=== PATIENT | male | born 1960 | race Caucasian/White ===

== ENCOUNTER 2018-11-14 11:56 | Inpatient (IN) | payer SELFPAY ==
[2018-11-14] MEDS ORDERED: Norepinephrine 8 MG/250 ML BAG IVPB PRN (12:12)
[2018-11-14] MEDS ORDERED: EPINEPHrine 1 MG, Admixture Fee 1 EACH in Dextrose 5% in Water 250 ML IVPB SCH (12:45)
[2018-11-14 12:50] LABS: Hemoglobin 14.6 g/dL (14.0-18.0); Mean Corpuscular HGB CONC 31.7 g/dL (32.0-36.0); Mean Corpuscular Hemoglobin 30.7 pg (27.0-31.0); Mean Corpuscular Volume 96.6 fL (78.0-98.0); Mean Platelet Volume 9.7 fL (7.4-10.4); Platelet Count 233 thou/uL (130-400); RBC Distribution Width 12.2 % (11.5-14.5); Red Blood Cell (RBC) Count 4.75 mill/uL (4.70-6.10); White Blood Cell (WBC) Count 45.9 thou/uL (4.8-10.8)
[2018-11-14] MEDS ORDERED: Piperacillin/Tazobactam 4.5 GM VIAL ONE (12:56)
[2018-11-14] MEDS ORDERED: Norepinephrine 8 MG in Dextrose 5% in Water 250 ML IVPB PRN (13:00)
[2018-11-14 13:01] LABS: ALT (SGPT) 512 U/L (8-55); AST (SGOT) 983 U/L (5-34); Albumin 1.7 g/dL (3.5-5.0); Alkaline Phosphatase 229 U/L (40-150); Anion Gap 34 mmol/L (10-20); BUN (Urea Nitrogen) 87 mg/dL (8.4-25.7); Bilirubin, Total 1.3 mg/dL (0.2-1.2); CK (CPK) 3119 U/L (30-200); Calc. Creatinine Clearance 0 mL/min (70-130); Carbon Dioxide 10 mmol/L (22-29); Chloride 104 mmol/L (98-107); Estimated GFR-MDRD 17; Globulin 1.6 g/dL (2.4-3.5); Potassium 5.1 mmol/L (3.5-5.1); Protein, Total 3.3 g/dL (6.0-8.3); Sodium 143 mmol/L (136-145)
[2018-11-14 13:08] LABS: Actual Bicarbonate (HCO3a) 11.2 mEq/L (22-28); Analyzer IN Cardio ER; Base Excess (BEa) -24.9 mEq/L (-2.0 to +3.0); Calcium, Ionized 1.02 mmol/L (1.12-1.30); Carboxyhemoglobin (COHb) 1.1 gm% (0.0-3.0); Hemoglobin (Hb) 13.9 g/dL (14.0-18.0); O2 Tension (PaO2) 92.7 mmHg (80.0-100.0)
[2018-11-14 13:08] LABS: Glucose 13 mg/dL (70-105)
[2018-11-14] MEDS ORDERED: Sodium Bicarb 50 MEQ/50 ML Abboject 8.4% SYRINGE ONE ×2 (13:12→15:00)
[2018-11-14] MEDS ORDERED: Fentanyl 100 MCG/2 ML VIAL ONE (13:13)
[2018-11-14] MEDS ORDERED: Sodium Bicarb 50 MEQ/50 ML VIAL ONE ×8 (13:14→22:10)
[2018-11-14] MEDS ORDERED: Rocuronium Bromide 10 MG/ML (10ML VIAL) ONE ×2 (13:15→14:56)
[2018-11-14] MEDS ORDERED: Hydrocortisone Sod Succ/PF 100 mg/2 ml Vial ONE (13:17)
[2018-11-14 13:29] LABS: CKMB 62.5 ng/mL (0-6.6)
[2018-11-14 13:41] LABS: Band 44 % (5-11); Eosinophils 1 % (0-10); Hypochromia SLIGHT = 6-15 cells (100X) (0-5/hpf); Lymphocytes 15 % (21-51); MDiff Complete? YES; Metamyelocyte 8 % (0-0); Monocytes 3 % (0-10); Myelocyte 22 % (0-0); Neutrophil 3 % (42-75); Nucleated RBC 2 % (0); Ovalocytes SLIGHT = 2-5 cells (100X) (0-1/hpf); Platelet Morphology Comment Appears Adequate; Polychromasia MODERATE = 3-4 cells (100X) (0-2/hpf); Reactive Lymphocytes 4 % (0-10); Reflex for Review?? YES; Tear Drops SLIGHT = 2-5 cells (100X) (0-1/hpf)
[2018-11-14 13:50] LABS: INR-International Normal Ratio 2.2; PTT 48.8 SEC (22.9-36.1); Prothrombin Time 24.8 SEC (12.0-14.7)
[2018-11-14 14:02] LABS: pH, Arterial 6.77 (7.35-7.45)
[2018-11-14] MEDS ORDERED: Albumin 5% 500 ML ONE ×3 (14:10→22:34)
--- NOTE | 2018-11-14 14:17 | RAD ---
PORTABLE CHEST ONE VIEW: 11/14/18 at 12:10 p.m. HISTORY: Respiratory failure. FINDINGS/IMPRESSION: There is an endotracheal tube with tip at the level of the clavicular heads. The nasogastric tube can be placed into the stomach with tip excluded from the film. The heart size is borderline. There are bilateral perihilar alveolar opacities, right greater than left. No pneumothoraces or large effusion s are seen. POS: [facility]
[2018-11-14] MEDS ORDERED: Albuterol Sulfate HFA (OR ONLY) ONE (14:21)
[2018-11-14] MEDS ORDERED: Neomycin-Polymyxin 1 ML AMP ONE (14:30)
[2018-11-14] MEDS ORDERED: EPINEPHrine 1 MG/10 ML Abboject SYRINGE ONE (14:56)
[2018-11-14] MEDS ORDERED: Calcium Chloride 1 GM/10 ML Abboject SYRINGE ONE ×4 (14:56→22:33)
[2018-11-14] MEDS ORDERED: Dextrose 50% Abboject 50 ML SYRINGE ONE ×2 (15:00→22:12)
--- NOTE | 2018-11-14 15:12 | CT ---
CT ABDOMEN AND PELVIS WITHOUT CONTRAST: 11/14/18 HISTORY: Cardiac and respiratory failure, left lower quadrant abdominal pain. FINDINGS: There is consolidative changes at the lung bases. There is extensive free air in the abdomen. No calcified gallstones are seen. No calculi is seen in the kidneys, ureters or the urinary bladder. No hydroureteronephrosis seen on either side. The Oh catheter is present with air in a nondistend ed urinary bladder. Appendix is normal. There are vascular calcifications without evidence of aneurys mal dilatation of the abdominal aorta. There are degenerative changes in the spine. No calculi seen i n the right kidney, ureters or the urinary bladder. A tiny nonobstructing left renal calculus is pre sent. There is a fat containing left inguinal hernia which also contains free air. Large amount of free air in the abdomen is seen in the left lower quadrant which could be due to perforated diverticulum. Oth er sites of bowel perforation; however, cannot be excluded. IMPRESSION: Large amount of free air in the abdomen consistent with bowel perforation. Discussed over the telephone with ER physician, Dr. Thom Gonzalez at 12:45 p.m. POS: [facility]
[2018-11-14] MEDS ORDERED: Dextrose 5% in Water 1,000 ML IV PRN (15:17)
[2018-11-14] MEDS ORDERED: HumaLOG 300 UNITS/3 ML VIAL SC PRN (15:17)
[2018-11-14] MEDS ORDERED: Dextrose 50% Abboject 50 ML SYRINGE SLOW IVP PRN (15:17)
[2018-11-14] MEDS ORDERED: Ondansetron PF 4 MG/2 ML Vial IVP PRN (15:17)
[2018-11-14] MEDS ORDERED: fentaNYL Citrate/PF 2,000 MCG in Sodium Chloride 0.9% 60 ML IV SCH (15:24)
[2018-11-14] MEDS ORDERED: Fentanyl BOLUS 250 ML IVPB PRN (15:24)
[2018-11-14] MEDS ORDERED: Lorazepam 2 MG/ML VIAL SLOW IVP PRN (15:24)
[2018-11-14] MEDS ORDERED: Propofol BOLUS 1,000 MG/100 ML VIAL IV PRN (15:24)
[2018-11-14] MEDS ORDERED: Morphine 2 MG/ML SYRINGE SLOW IVP PRN (15:24)
[2018-11-14] MEDS ORDERED: Propofol 1,000 MG/100 ML VIAL IV PRN (15:24)
[2018-11-14] MEDS ORDERED: DISCONTINUE PREVIOUS NARCOTIC PAIN MEDICATIONS AND BENZODIAZEPINES FS SCH (15:24)
[2018-11-14] MEDS ORDERED: Sodium Bicarbonate 150 MEQ in Dextrose 5% in Water 1,000 ML IV SCH (15:30)
[2018-11-14] MEDS ORDERED: Ventilator Sedation Protocol 1 EACH FS SCH (15:30)
[2018-11-14 15:49] LABS: Actual Bicarbonate (HCO3a) 17.6 mEq/L (22-28); Base Excess (BEa) -13.5 mEq/L (-2.0 to +3.0); Calcium, Ionized 1.11 mmol/L (1.12-1.30); Carboxyhemoglobin (COHb) 2.4 gm% (0.0-3.0); Hemoglobin (Hb) 12.7 g/dL (14.0-18.0); O2 Tension (PaO2) 69.1 mmHg (80.0-100.0); Potassium - ABG Lab 3.42 mmol/L (3.70-5.30)
[2018-11-14] MEDS ORDERED: Sodium Bicarb 50 MEQ/50 ML Abboject 8.4% SYRINGE IVP SCH ×2 (16:00)
[2018-11-14 16:07] LABS: CO2 Tension 66.3 mmHg (35.0-45.0); pH, Arterial 7.04 (7.35-7.45)
[2018-11-14 16:08] LABS: Puncture Site ALINE
[2018-11-14 16:09] LABS: ALV-art Gradient 561.025 (0-20)
[2018-11-14 16:11] VITALS: BMI 33.8
[2018-11-14] MEDS ORDERED: Amiodarone 450 MG, Admixture Fee 1 EACH in Dextrose 5% in Water 250 ML IVPB SCH (16:15)
[2018-11-14] MEDS ORDERED: Amiodarone 150 MG, Admixture Fee 1 EACH in Dextrose 5% in Water 100 ML IVPB SCH (16:15)
[2018-11-14 16:20] LABS: Anion Gap 30 mmol/L (10-20); BUN (Urea Nitrogen) 87 mg/dL (8.4-25.7); Calc. Creatinine Clearance 40 mL/min (70-130); Calcium 8.1 mg/dL (7.8-10.44); Carbon Dioxide 18 mmol/L (22-29); Chloride 103 mmol/L (98-107); Estimated GFR-MDRD 19; Glucose 128 mg/dL (70-105); Magnesium 3.1 mg/dL (1.6-2.6); Phosphorus 13.4 mg/dL (2.3-4.7); Potassium 3.5 mmol/L (3.5-5.1); Sodium 147 mmol/L (136-145)
[2018-11-14 17:22] LABS: Lactic Acid 13.2 mmol/L (0.5-2.2)
[2018-11-14] MEDS ORDERED: Norepinephrine 16 MG in Dextrose 5% in Water 234 ML IVPB PRN (17:43)
[2018-11-14] MEDS ORDERED: Sodium Bicarb 50 MEQ/50 ML VIAL IVP SCH (17:45)
[2018-11-14 18:35] LABS: Actual Bicarbonate (HCO3a) 23.8 mEq/L (22-28); Base Excess (BEa) -4.6 mEq/L (-2.0 to +3.0); Calcium, Ionized 0.96 mmol/L (1.12-1.30); Carboxyhemoglobin (COHb) 2.6 gm% (0.0-3.0); Hemoglobin (Hb) 11.3 g/dL (14.0-18.0); Potassium - ABG Lab 3.16 mmol/L (3.70-5.30)
--- NOTE | 2018-11-14 18:38 | HP ---
DATE OF CONSULTATION: 11/14/2018 HISTORY OF PRESENT ILLNESS: A 58-year-old man apparently with 1-week history of abdominal pain. Family finally called 911. The patient is seen by [facility]. He developed asystole, cardiac arrest requiring 10-minute CPR. Following return of spontaneous circulation or intubation, the patient was transferred to [facility] in [place], [place], on arriving in extremis. He is now on large volume resuscitation as well as vasopressor and inotropic support. CT scan of the abdomen and pelvis was obtained, which was significant for large amount of pneumoperitoneum. I was asked to evaluate the patient for surgical intervention. At the time of my evaluation, the patient is intubated on mechanical ventilator support, an extremis. PAST MEDICAL HISTORY: Unknown. PAST SURGICAL HISTORY: Unknown. SOCIAL HISTORY: Unknown. FAMILY HISTORY: Unknown. CURRENT MEDICATIONS: Unknown. ALLERGIES: UNKNOWN. REVIEW OF SYSTEMS: Could not be obtained. The patient is in extremis on full mechanical ventilator support. PHYSICAL EXAMINATION: GENERAL: Reveals a 58-year-old man, who is in extremis. He otherwise appears stated age. VITAL SIGNS: Include blood pressure, which was in the upper 70s to low 80s on a high dose of norepinephrine and epinephrine. The patient had already received over 6 L of crystalloids. HEENT: Reveals normocephalic and atraumatic. Both pupils are equal at 4 mm and reactive to light. NECK: He has no jugular venous distention noted. HEART: Reveals regular rate with sinus tachycardia. No murmurs or gallops auscultated. LUNGS: Clear to auscultation bilaterally. Breathing, regular and unlabored. ABDOMEN: Soft and markedly distended. The liver and spleen nonpalpable below costal margin. EXTREMITIES: Reveals thready bilateral radial and pedal pulses present. Both feet are cool to touch nevertheless. Capillary refill; however, is presently less than 2 seconds. NEUROLOGIC: Could not be ascertained as the patient is sedated on mechanical ventilator support. LABORATORY FINDINGS: Today includes a CBC with a 45,900 white blood cells, hemoglobin and hematocrit 14.6 and 45.9 respectively. The platelet count is 233,000. Differential counts as follows; 3% segmented neutrophils, 44 bands, 15 lymphocytes, 3 monocytes, and 1 eosinophil. Metabolic profile; sodium is 143, potassium is 5.1, chloride is 104, bicarb is 10, creatinine is 3.68, BUN is 87, glucose is 13, lactic acid is 15.5, total bilirubin is 1.3, and AST and ALT are 983 and 512 respectively. Alkaline phosphatase is 229. Creatine kinase is elevated at 3119. Serum cortisol level is noted at 32. Arterial blood gas; pH is 6.77, pCO2 is 78, pO2 is 92.7, oxygen saturation is 86.5%, and base excess is -24.9. Ionized calcium is noted at 1.02. I have personally reviewed the CT scan of the abdomen and pelvis, which is remarkable for thickened left colonic wall with extensive pneumoperitoneum. IMPRESSION: 1. Acute perforated viscus, likely secondary to perforated colon, likely ischemic in nature. 2. Acute septic shock secondary to likely gram-negative endotoxemia. 3. Severe acute lactic acidosis secondary to #1 and 2. 4. Acute hypercapnic and hypoxemic respiratory failure. 5. Acute severe lactic acidosis. 6. Acute ischemic hepatitis. 7. Acute kidney injury secondary to #1 and 2. 8. Acute rhabdomyolysis. 9. Acute hypocalcemia. PLAN: 1. Emergent exploratory laparotomy with indicated procedures. 2. Aggressive fluid resuscitation. Goal will be to continue vasopressor and inotropic support and deescalate as indicated. Total Critical Care time : 65 minutes Job ID: [id number] MTDD
[2018-11-14 18:39] LABS: CO2 Tension 60.4 mmHg (35.0-45.0); pH, Arterial 7.21 (7.35-7.45)
[2018-11-14 18:40] LABS: O2 Tension (PaO2) 54.4 mmHg (80.0-100.0); Puncture Site LINE
--- NOTE | 2018-11-14 18:53 | OP ---
DATE OF PROCEDURE: 11/14/2018 PREOPERATIVE DIAGNOSES: 1. Acute perforated viscus. 2. Acute septic shock secondary to likely gram-negative endotoxemia. 3. Multiple organ failure syndrome secondary to #1 and #2. POSTOPERATIVE DIAGNOSES: 1. Ischemic left colonic bowel necrosis. 2. Severe peritonitis. 3. Necrotizing soft tissue infection involving the pelvis and low anterior abdominal wall. 4. Multiple organ failure syndrome. 5. Severe lactic acidosis. PROCEDURES PERFORMED: 1. Exploratory laparotomy. 2. Left hemicolectomy. 3. Excisional debridement of multiple necrotic soft tissue involving the peritoneum and abdominal wall. 4. Abdominal washout. 5. Temporary abdominal closure using ABThera wound VAC. ANESTHESIA: General endotracheal. ESTIMATED BLOOD LOSS: Less than 50 mL. COUNTS: Sponge and instrument counts were verified as correct x2. COMPLICATIONS: None apparent at the time of operation. INDICATIONS FOR OPERATION: A 58-year-old man supposedly with over 1-week history of abdominal pain. The patient was brought to the Emergency Department following acute cardiac arrest. CPR was initiated and continued for 10 minutes according to [facility]. The patient was subsequently intubated and placed on mechanical ventilator support after return of spontaneous circulation. Workup in the Emergency Department including a CT scan of the abdomen and pelvis were remarkable for extensive pneumoperitoneum. The patient has received large volume fluid resuscitation, yet remaining hypotensive on vasopressors and inotropic support. The patient was taken to the operating room emergently for exploration. Findings are consistent with extensive necrosis of the left colon, down to and including the rectum. There is extensive amount of soft tissue necrosis involving the peritoneum, left retroperitoneum and anterior abdominal wall. DESCRIPTION OF PROCEDURE: The patient was taken to the operating room urgently, placed in supine position. Following general anesthesia, abdomen was sterilely prepped and draped in usual fashion. A midline incision was made using #10 scalpel. Incision was carried through subcutaneous tissues maintaining hemostasis using cautery. The fascia incised in midline using cautery exposing the peritoneum, which was grasped x2 with hemostats. The peritoneal cavity was sharply entered. Incision was then extended superiorly and inferiorly. Bookwalter retractor was put in place to gain exposure. Large amount of foul-smelling purulent peritoneal fluid was evacuated using suction. The small bowel was run from ligament of Treitz down to terminal ileum. No small bowel pathology was noted. There was patchy necrosis of the mesentery of the small bowel, especially involving the distal ileum. Large intestine was inspected from the dilated cecum through the ascending, transverse, and proximal descending colon. Beyond this point just approximately 2 cm beyond the splenic flexure, the left colon was completely necrotic down to the level of the rectum. We then proceeded with colectomy. The left colon was mobilized along the white line of Toldt using Metzenbaum scissors. I was able to bluntly dissect down into the pelvis encircling the mesorectum. A contour stapler was introduced and bowel was divided. The dissection was carried up superiorly to just past the splenic flexure. The splenic flexure was taken down sharply using Metzenbaum scissors. I created a rent through the transverse mesocolon through this a SANDI stapler was introduced. Bowel was divided. Mesentery of the specimen was serially divided using LigaSure device with good hemostasis. Necrotic left colon was passed off the operative field for formal transmission to Pathology. The abdominal cavity was then copiously irrigated clear with saline solution. Necrotic peritoneum and anterior abdominal wall were sharply debrided using Metzenbaum scissors. Finding no other pathology, exploration was terminated at this juncture, as this was indeed a salvage operation. The patient was on maximum doses of vasopressor and inotropic support. We were able to account for sponges and instruments x2. Small bowel was run to normal anatomic location. Omentum was drawn over the remainder of the viscera. ABThera wound VAC dressing was used to cover the entire abdomen. A wound VAC sponge was placed over the ABThera. A wound VAC dressing was then drawn over the entire abdomen, which was connected to vacuum assisted device with good suction. The patient tolerated the operation without any apparent complication. Returned to the intensive care unit in critical condition. Job ID: [id number]
[2018-11-14 18:57] VITALS: BP 87/40
[2018-11-14] MEDS ORDERED: Enoxaparin Sodium 30 MG/0.3 ML SYRINGE SC SCH (21:00)
[2018-11-14] MEDS ORDERED: Famotidine/PF 20 mg/2ml Vial SLOW IVP SCH (21:00)
--- NOTE | 2018-11-15 18:00 | CON ---
DATE OF CONSULTATION: 11/14/2018 HISTORY OF PRESENT ILLNESS: Mr. Chapa is a pleasant gentleman, who unfortunately was found to have perforated viscus after presenting upon referral from [facility] with hypotension and free air on CT of his abdomen. He was taken to the operating room. I was consulted postoperatively for assistance with management. He was found to have abdominal findings consistent with necrotizing fasciitis and perforated viscus. He is transferred to critical care, mechanically ventilated. I have been consulted by the ER doctor to put an A-line on him prior to surgery. I have deferred anesthesia since he was going straight to the OR. PAST MEDICAL HISTORY: Really unknown. FAMILY HISTORY: Unknown. SOCIAL HISTORY: Unknown. REVIEW OF SYSTEMS: Not obtainable. PHYSICAL EXAMINATION: GENERAL: He is on three pressors when I saw him. He was still sedated from his operative procedure. He is in sinus tachycardia. VITAL SIGNS: Blood pressure was in the 70s to 80s, respiratory rate was 30. HEENT: Pupils react. Sclerae are anicteric. NECK: Without lymphadenopathy. LUNGS: Clear anteriorly. HEART: Regular rhythm. ABDOMEN: Soft, distended, and bandaged. He was left open with an ABThera dressing. EXTREMITIES: With stasis changes. LABORATORY DATA: White count 45.9, hemoglobin 14.6, 44% bands, 8% metamyelocytes, 22% myelocytes. Sodium 147, potassium 3.5, chloride 103, bicarb 18, BUN 87, creatinine 3.31. He is aneuric. Lactate was 13.2. First blood gas; pH of 6.77, that was mechanically ventilated. Second blood gas; pH of 7.04. Upon arrival upstairs, last blood gas at 6:30 in the evening pH 7.21, CO2 of 60, PO2 of 54. IMPRESSION: 1. Abdominal sepsis. 2. Respiratory failure. 3. Severe metabolic acidosis secondary to abdominal sepsis. 4. Acute tubular necrosis/acute renal failure associated with sepsis. 5. Obesity. Switch his IV fluids to just a bicarb drip. His gas exchange abnormalities are largely related to his shunt, but he does have some pulmonary edema on chest radiograph, so probably can continue with fluids at 150 mL an hour. He had a blood gas done at 10:00 p.m. that showed a pH that was back down to around 7.0. Apparently, this was not entered into the computer because the computer system was down. He has had multiple more amps of bicarb ordered push and family was notified that he would not survive the night. Family wanted to made a DNR. This was done and he is succumbed to this illness early this morning. CRITICAL CARE TIME: 45 minutes. Job ID: [id number] MTDD
--- NOTE | 2018-11-16 08:55 | DIS ---
DATE OF ADMISSION: 11/14/2018 DATE OF DISCHARGE: 11/15/2018 ADMISSION DIAGNOSES: 1. Acute perforated viscus, likely secondary to perforated colon, likely ischemic in nature. 2. Acute septic shock, likely gram-negative endotoxins. 3. Acute lactic acidosis secondary to above. 4. Acute hypercapnic and hypoxemic respiratory failure secondary to above. 5. Acute ischemic hepatitis. 6. Acute kidney injury. 7. Acute rhabdomyolysis. 8. Acute hypocalcemia. DISCHARGE DIAGNOSES: 1. Acute perforated viscus, likely secondary to perforated colon, likely ischemic in nature. 2. Acute septic shock, likely gram-negative endotoxins. 3. Acute lactic acidosis secondary to above. 4. Acute hypercapnic and hypoxemic respiratory failure secondary to above. 5. Acute ischemic hepatitis. 6. Acute kidney injury. 7. Acute rhabdomyolysis. 8. Acute hypocalcemia. CONSULTANTS: Dr. Raphael, ICU. PROCEDURES: Exploratory laparotomy, Dr. Juan, 11/14/2018. HOSPITAL COURSE: Mr. Chapa was a 58-year-old male, who presented to [facility] status post 1-week history of abdominal pain. The patient was in asystolic arrest upon arrival of EMS at the patient's home. He had return of spontaneous circulation and transferred to [facility] in [place], [place], on the date of admission. He was on multiple vasopressors and volume resuscitation for blood pressure support. CT scan of the abdomen and pelvis revealed pneumoperitoneum. The patient was taken emergently for exploratory laparotomy, where he was found to have ischemic bowel necrosis with peritonitis and necrotizing fasciitis of the pelvis and lower anterior abdominal wall. Exploratory laparotomy and washout, as well as hemicolectomy and excisional debridement was performed. He had temporary abdominal closure. He was taken to the ICU in critical condition. Family was updated by Dr. Juan at that time regarding his likely poor prognosis and poor outcome. Overnight, the patient continued to deteriorate, developing severe metabolic acidosis despite bicarb infusion at a continuous rate. He had multiple amps of bicarb pushed per critical care and up titration of his vasopressor support. Family was updated and given the patient's poor prognosis and likely difficulty continuing to resuscitate, he was made a do not resuscitate at that time. Overnight, the patient did lose his pulse. He was declared by bedside nurses. DISCHARGE DISPOSITION: . DISCHARGE PHYSICAL EXAMINATION: Unresponsive. Pupils fixed and dilated. No spontaneous respirations and no cardiac sounds auscultated. Family was updated by nursing staff. The body was released per hospital protocol. This is merely a summary of the patient's hospitalization. For more in-depth information, please see his medical record in its entirety. Job ID: [id number]
--- NOTE | 2018-11-17 11:56 | EKG ---
Test Reason : ER INDICATION Blood Pressure : / mmHG Vent. Rate : 100 BPM Atrial Rate : 077 BPM P-R Int : 000 ms QRS Dur : 106 ms QT Int : 380 ms P-R-T Axes : 000 030 002 degrees QTc Int : 490 ms Atrial fibrillation with premature ventricular or aberrantly conducted complexes Prolonged QT Abnormal ECG Confirmed by JAISON ARAGON, ODALYS Heath ([id number]), city editor DARELL NETTLES ([id number]) on 11/17/2018 11:56:27 AM Referred By: Confirmed By:ODALYS BLACKWOOD MD
[2018-11-20 11:47] LABS: Actual Bicarbonate (HCO3v) 16 mEq/L (22-28); Analyzer IN Cardio OR; Base Excess -15.4 mEq/L (-2.0 to +3.0); Calcium, Ionized 1.08 mmol/L (1.16-1.32); Chloride (ABG LAB) 104 mmol/L (98-106); Hemoglobin (Hb) 13.1 g/dL (13.1-17.2); Potassium - ABG Lab 3.75 mmol/L (3.70-5.30); Sodium 142.7 mmol/L (133-146)
[2018-11-20 11:47] LABS: Actual Bicarbonate (HCO3v) 16 mEq/L (22-28); Analyzer IN Cardio OR; Base Excess -17.2 mEq/L (-2.0 to +3.0); Calcium, Ionized 1.13 mmol/L (1.16-1.32); Chloride (ABG LAB) 106 mmol/L (98-106); Hemoglobin (Hb) 12.9 g/dL (13.1-17.2); Potassium - ABG Lab 3.74 mmol/L (3.70-5.30); Sodium 144.5 mmol/L (133-146)
[2018-11-20 11:47] LABS: Actual Bicarbonate (HCO3v) 16 mEq/L (22-28); Analyzer IN Cardio OR; Base Excess -16.6 mEq/L (-2.0 to +3.0); Calcium, Ionized 1.06 mmol/L (1.16-1.32); Chloride (ABG LAB) 107 mmol/L (98-106); Hemoglobin (Hb) 13.1 g/dL (13.1-17.2); Potassium - ABG Lab 3.56 mmol/L (3.70-5.30); Sodium 142.8 mmol/L (133-146)
[2018-11-20 11:54] LABS: pH (venous) 7.01 (7.32-7.43)
[2018-11-20 11:56] LABS: pH (venous) 6.98 (7.32-7.43)
[2018-11-20 11:57] LABS: pH (venous) 6.95 (7.32-7.43)
== END 2018-11-15 02:50 | disposition expired | DRG 853 ==
LOC: ERS 11:56 → SDC 13:48 → CCU 15:20
PROVIDERS: ADMIT Surgery; ATTEND Surgery
PROC: 0DTG0ZZ Resection of Left Large Intestine, Open Approach (ICD-10-PCS; principal; 2018-11-14)
PROC: 0JB80ZZ Excision of Abdomen Subcutaneous Tissue and Fascia, Open Approach (ICD-10-PCS; 2018-11-14)
PROC: 3E033XZ Introduction of Vasopressor into Peripheral Vein, Percutaneous Approach (ICD-10-PCS; 2018-11-14)
DX: A41.50 Gram-negative sepsis, unspecified (principal); K55.049 Acute infarction of large intestine, extent unspecified; K63.1 Perforation of intestine (nontraumatic); R65.21 Severe sepsis with septic shock; Z66 Do not resuscitate; J96.01 Acute respiratory failure with hypoxia; J96.02 Acute respiratory failure with hypercapnia; K65.9 Peritonitis, unspecified; N17.0 Acute kidney failure with tubular necrosis; E87.2 Acidosis; B17.9 Acute viral hepatitis, unspecified; M62.82 Rhabdomyolysis; I46.9 Cardiac arrest, cause unspecified; E83.51 Hypocalcemia; R40.2432 Glasgow coma scale score 3-8, at arrival to emergency department; E66.9 Obesity, unspecified; Z68.33 Body mass index [BMI] 33.0-33.9, adult
CPT/HCPCS: 36415; 36416; 36556; 71045; 74176; 80053; 82533; 82550; 82553; 82805; 83605; 83735; 83880; 84100; 84484; 85025; 85060; 85384; 85610; 85730; 86850; 86900; 86901; 87040; 88307; 93005; 94002; 94760; 96365; 96368; 96374; 96375; J0171; J0282; J1650; J1720; J2543; J3010; J3490; J7070; J7620; P9045; S0028